=== PATIENT | male | born 1990 | race Two or more races ===

== ENCOUNTER 2017-12-11 20:30 | Emergency (ER) | payer SELFPAY ==
[~2017-12-11] VITALS: Ht 180.3 cm; Wt 99.0 kg
[2017-12-12] MEDS ORDERED: ACETAMINOPHEN 500MG TABLET ONE (05:07)
[2017-12-12 05:13] VITALS: BP 142/72
[2017-12-12] MEDS ORDERED: IBUPROFEN 400MG TABLET ONE (05:16)
[2017-12-12] MEDS ORDERED: TETANUS, DIPHTHERIA, PERTUSSIS VAC/PF 0.5ML (>7YR OLD) IM ONE (05:45)
[2017-12-12] MEDS ORDERED: DOXYCYCLINE HYCLATE 100MG CAPSULE PO NR (05:45)
== END 2017-12-12 05:32 | disposition home or self-care (01) ==
LOC: ER 20:30
PROC: 0J9J0ZZ Drainage of Right Hand Subcutaneous Tissue and Fascia, Open Approach (ICD-10-PCS; principal; 2017-12-12)
DX: L03.011 Cellulitis of right finger (principal); F17.200 Nicotine dependence, unspecified, uncomplicated
CPT/HCPCS: 26010; 90471; 90715; 99284; Z7610